=== PATIENT | male | born 1975 | race Caucasian/White ===

== ENCOUNTER 2018-02-19 02:30 | Emergency (ER) | payer OTHER ==
[~2018-02-19] VITALS: Ht 177.8 cm; Wt 90.7 kg
[~2018-02-19 02:30] MED LIST: ASPIR 8181 M1 PO; IBUPROFEN 800800 MG PO; LOPRESSOR50 PO; ZOCOR20 MG PO
[2018-02-19 04:32] VITALS: BP 118/72
== END 2018-02-19 04:33 | disposition home or self-care (01) ==
LOC: M.ERS 02:30
DX: R51 Headache (principal); Z88.8 Allergy status to other drugs, medicaments and biological substances; Z88.5 Allergy status to narcotic agent

== ENCOUNTER 2019-02-22 08:28 | Emergency (ER) | payer OTHER ==
[~2019-02-22] VITALS: Ht 177.8 cm; Wt 90.7 kg
[2019-02-22 08:56] LABS: ABSOLUTE BASOPHILS 0.1 thou/uL (0.0-0.2); ABSOLUTE EOSINOPHILS 0.1 thou/uL (0.0-0.7); ABSOLUTE LYMPHOCYTES 1.6 thou/uL (0.8-5.3); ABSOLUTE MONOCYTES 0.6 thou/uL (0.0-1.2); ABSOLUTE NEUTROPHILS 7.9 thou/uL (1.6-8.1); BASOPHILS 0.9 %; EOSINOPHILS 0.7 %; HEMATOCRIT 49.1 % (42.0-52.0); HEMOGLOBIN 16.8 gm/dL (14.0-18.0); LYMPHOCYTES 15.9 %; MCH 31.3 pg (26.0-34.0); MCHC 34.3 g/dL (28.0-37.0); MCV 91.2 fL (80.0-100.0); MONOCYTES 6.1 %; MPV 8.1 fl. (7.2-11.1); NUCLEATED RBCS 0 /100WBC; PLATELET COUNT* 231 thou/uL (150-400); POLYS 76.4 %; RBC 5.38 mil/uL (4.50-6.00); RDW-CV 13.8 % (10.5-14.5); WBC 10.3 thou/uL (4.0-11.0)
[2019-02-22 09:07] LABS: URINE BILIRUBIN NEGATIVE (Negative); URINE BLOOD TRACE (Negative); URINE CLARITY CLEAR; URINE COLOR YELLOW; URINE GLUCOSE-RANDOM NEGATIVE (Negative); URINE KETONES NEGATIVE (Negative); URINE LEUKOCYTES-REFLEX NEGATIVE (Negative); URINE NITRITE-REFLEX NEGATIVE (Negative); URINE PROTEIN NEGATIVE (Negative); URINE SPECIFIC GRAVITY 1.015 (1.005-1.030); URINE UROBILINOGEN 0.2 E.U./dl (0.2-1.0)
[2019-02-22 09:08] LABS: ALBUMIN 3.8 g/dL (3.4-5.0); CALCIUM 8.9 mg/dL (8.5-10.1); CREATININE 0.9 mg/dL (0.6-1.3); POTASSIUM 4.3 mmol/L (3.5-5.1); TOTAL BILIRUBIN 0.5 mg/dL (<0.1-1.0); TOTAL PROTEIN 7.1 g/dL (6.4-8.2)
[2019-02-22 10:36] VITALS: BP 117/74
== END 2019-02-22 10:37 | disposition home or self-care (01) ==
LOC: M.ERS 08:28
PROVIDERS: Family Medicine
DX: R19.7 Diarrhea, unspecified (principal); R35.0 Frequency of micturition; Z88.5 Allergy status to narcotic agent; Z88.6 Allergy status to analgesic agent

== ENCOUNTER 2019-04-19 13:16 | Emergency (ER) | payer OTHER ==
[~2019-04-19] VITALS: Ht 172.7 cm; Wt 93.0 kg
[2019-04-19 14:17] VITALS: BP 144/70
== END 2019-04-19 14:18 | disposition home or self-care (01) ==
LOC: M.ERS 13:16
DX: S51.812A Laceration without foreign body of left forearm, initial encounter (principal); F17.200 Nicotine dependence, unspecified, uncomplicated; Z88.6 Allergy status to analgesic agent; Z88.8 Allergy status to other drugs, medicaments and biological substances; K58.9 Irritable bowel syndrome, unspecified; W22.8XXA Striking against or struck by other objects, initial encounter; Y92.89 Other specified places as the place of occurrence of the external cause; Y93.89 Activity, other specified; Y99.8 Other external cause status

== ENCOUNTER 2019-09-05 05:55 | Emergency (ER) | payer OTHER ==
[~2019-09-05] VITALS: Ht 175.3 cm; Wt 93.0 kg
[2019-09-05 06:58] VITALS: BP 112/68
== END 2019-09-05 06:58 | disposition home or self-care (01) ==
LOC: M.ERS 05:55
DX: H16.133 Photokeratitis, bilateral (principal); K58.9 Irritable bowel syndrome, unspecified; Z88.6 Allergy status to analgesic agent

== ENCOUNTER 2020-05-02 13:58 | Emergency (ER) | payer OTHER ==
[~2020-05-02] VITALS: Ht 180.3 cm; Wt 88.5 kg
[2020-05-02 14:28] VITALS: BP 131/99
[2020-05-02] MEDS ORDERED: PREDNISOLONE ACE5 ML LT. EYE (14:40)
[2020-05-02 15:16] LABS: ABSOLUTE BASOPHILS 0.2 thou/uL (0.0-0.2); ABSOLUTE EOSINOPHILS 0.1 thou/uL (0.0-0.7); ABSOLUTE LYMPHOCYTES 1.8 thou/uL (0.8-5.3); ABSOLUTE MONOCYTES 0.5 thou/uL (0.0-1.2); EOSINOPHILS 0.5 %; HEMATOCRIT 48.2 % (42.0-52.0); HEMOGLOBIN 16.9 gm/dL (14.0-18.0); LYMPHOCYTES 11.3 %; MCH 32.2 pg (26.0-34.0); MCHC 35.1 g/dL (28.0-37.0); MCV 91.9 fL (80.0-100.0); MONOCYTES 3.4 %; MPV 7.9 fl. (7.2-11.1); NUCLEATED RBCS 0 /100WBC; PLATELET COUNT* 238 thou/uL (150-400); POLYS 83.8 %; RBC 5.24 mil/uL (4.50-6.00); RDW-CV 13.8 % (10.5-14.5); WBC 15.6 thou/uL (4.0-11.0)
[2020-05-02 15:27] LABS: CALCIUM 8.7 mg/dL (8.5-10.1); CREATININE 0.8 mg/dL (0.6-1.3); POTASSIUM 4.5 mmol/L (3.5-5.1)
[2020-05-02 15:31] LABS: ALBUMIN 3.9 g/dL (3.4-5.0); TOTAL BILIRUBIN 0.6 mg/dL (<0.1-1.0); TOTAL PROTEIN 7.3 g/dL (6.4-8.2)
[2020-05-02] MEDS ORDERED: ULTRAM50 MG PO (15:37)
== END 2020-05-02 16:53 | disposition home or self-care (01) ==
LOC: M.ERS 13:58
PROVIDERS: Emergency Medicine Emergency Medical Services
DX: M79.18 Myalgia, other site (principal); R51 Headache; Z88.6 Allergy status to analgesic agent; Z88.5 Allergy status to narcotic agent; Z88.8 Allergy status to other drugs, medicaments and biological substances